=== PATIENT | male | born 2000 | race Caucasian/White ===

== ENCOUNTER 2023-10-20 19:46 | Emergency (ER) | payer OTHER ==
[~2023-10-20] VITALS: Ht 170.2 cm; Wt 127.0 kg
[2023-10-20 20:16] VITALS: TEMP 98.1
[2023-10-20] MEDS ORDERED: KETOROLAC TROMETHAMINE 15 MG/ML VIAL ONE (21:25)
[2023-10-20] MEDS: KETOROLAC TROMETHAMINE 15 MG/ML VIAL IM ONE (21:30)
[2023-10-20] MEDS ORDERED: KETO10TA2 PO (21:53)
[2023-10-20 22:03] VITALS: BP 138/81; O2SAT 99
== END 2023-10-20 22:03 | disposition home or self-care (01) ==
LOC: ER 19:48
DX: S49.82XA Other specified injuries of left shoulder and upper arm, initial encounter (principal); M54.59 Other low back pain; W10.8XXA Fall (on) (from) other stairs and steps, initial encounter; Y93.89 Activity, other specified; Y92.89 Other specified places as the place of occurrence of the external cause; Y99.8 Other external cause status
CPT/HCPCS: 99283; 96372; 73030; J1885